=== PATIENT | male | born 1955 | race Caucasian/White ===

== ENCOUNTER 2021-07-06 20:15 | Inpatient (IN) ==
[2021-07-06] MEDS ORDERED: Naloxone 0.4 MG/ML INJ IVP PRN (22:26)
[2021-07-06] MEDS ORDERED: Ondansetron ODT 4 MG TAB.RAPDIS SL PRN (22:26)
[2021-07-07] MEDS ORDERED: Perflutren Lipid Microsphere 1.3 ML in 0.9 % Sodium Chloride 8.7 ML IVP PRN (00:15)
[2021-07-07 02:32] LABS: Basophils % 0.7 %; Eosinophils # 0.1 K/mcL (0.0-0.6); Hematocrit 31.2 % (37.5-50.1); Immature Granulocytes % 0.7 % (0-4); Lymphocytes # 1.5 K/mcL (0.6-4.6); Lymphocytes % 28.3 %; Mean Corpuscular HGB Conc 32.1 g/dL (31.6-35.5); Mean Corpuscular Hemoglobin 28.5 pg (28.0-33.3); Mean Corpuscular Volume 88.9 fL (83.0-100.0); Mean Platelet Volume 10.4 fL (9.4-12.4); Monocytes # 0.6 K/mcL (0.0-1.3); Monocytes % 10.6 %; Neutrophils # 3.1 K/mcL (1.6-8.9); Platelet Count 119 K/mcL (140-400); Red Blood Count 3.51 M/mcL (4.19-5.50); Red Cell Distribution Width 13.2 % (11.5-14.5); Segmented Neutrophils % 57.7 %; White Blood Count 5.4 K/mcL (4.3-11.1)
[2021-07-07 02:42] LABS: INR 1.8
[2021-07-07 02:56] LABS: Albumin 3.8 g/dL (3.5-5.7); Albumin/Globulin Ratio 1.3 (1.1-2.2); Bilirubin,Total 1.3 mg/dL (0.3-1.0); Calcium 9.1 mg/dL (8.6-10.3); Magnesium 1.7 mg/dL (1.6-2.6); Phosphorous 3.7 mg/dL (2.7-4.5); Potassium 3.8 mEq/L (3.5-5.1); Total Protein 6.8 g/dL (6.4-8.9); Troponin I 0.18 ng/mL (< 0.04)
[2021-07-07] MEDS: Aspirin 81 MG TAB.CHEW PO SCH (07:39)
[2021-07-07] MEDS: Thiamine (B-1) 100 MG TABLET PO SCH (07:39)
[2021-07-07] MEDS ORDERED: 0.9 % Sodium Chloride 1,000 ML IVC SCH (08:15)
[2021-07-07] MEDS ORDERED: *HR* Rivaroxaban 10 MG TABLET PO SCH (09:00)
[2021-07-07] MEDS: Albumin 25% 25gram/100mL 25 GM/100 ML IV.SOLN IVPB SCH ×2 (10:10→17:35)
[2021-07-07 11:06] LABS: Troponin I 0.14 ng/mL (< 0.04)
[2021-07-07] MEDS: Furosemide 20 MG/2 ML VIAL IVP SCH ×3 (11:09→20:15)
[2021-07-07 11:12] LABS: Thyroid Stimulating Hormone 1.928 mcIU/mL (0.340-5.600)
[2021-07-07 18:10] LABS: Bilirubin,Urine Negative (Negative); Blood,Urine Negative (Negative); Clarity,Urine Clear (Clear); Color,Urine Colorless (Yellow); Glucose,Urine (UA) Normal (Normal); Ketones,Urine Negative (Negative); Leukocyte Esterase,Urine Negative (Negative); Nitrite,Urine Negative (Negative); PH,Urine 5.5 pH Units (5.0-8.0); Protein,Urine Negative (Neg-Trace); Urobilinogen,Urine Normal (Normal)
[2021-07-07] MEDS ORDERED: *HR* Heparin 5,000 UNIT/ML VIAL IVP PRN ×2 (18:43)
[2021-07-07 19:10] LABS: Hematocrit 31.2 % (37.5-50.1); Hemoglobin 9.9 g/dL (12.9-16.9); Mean Corpuscular HGB Conc 31.7 g/dL (31.6-35.5); Mean Corpuscular Hemoglobin 28.2 pg (28.0-33.3); Mean Corpuscular Volume 88.9 fL (83.0-100.0); Mean Platelet Volume 10.4 fL (9.4-12.4); Platelet Count 114 K/mcL (140-400); Red Blood Count 3.51 M/mcL (4.19-5.50); Red Cell Distribution Width 13.2 % (11.5-14.5); White Blood Count 4.6 K/mcL (4.3-11.1)
[2021-07-07 19:24] LABS: INR 2.8; Prothrombin Time 30.7 Seconds (9.4-12.1)
[2021-07-07 19:28] LABS: Heparin anti-factor XA UFH 1.41 IU/mL (0.30-0.70)
[2021-07-07 20:08] LABS: Activated Partial Thrombo Time 139.1 Seconds (26.0-36.0)
[2021-07-07] MEDS ORDERED: Heparin 25,000UNIT/250ML 1/2NS 25,000 UNIT/250 ML IV.SOLN IVC SCH (22:00)
[2021-07-07] MEDS: Heparin 25,000UNIT/250ML 1/2NS 25,000 UNIT/250 ML IV.SOLN IVC SCH (22:03)
[2021-07-08] MEDS: Albumin 25% 25gram/100mL 25 GM/100 ML IV.SOLN IVPB SCH ×3 (01:20→18:12)
[2021-07-08] MEDS: OLANZapine 5 MG TAB.RAPDIS PO PRN (01:22)
[2021-07-08] MEDS: *HR* Metoprolol 5 MG/5 ML VIAL IVP PRN ×2 (03:31→08:18)
[2021-07-08 05:13] LABS: Basophils % 0.5 %; Eosinophils # 0.1 K/mcL (0.0-0.6); Eosinophils % 1.5 %; Hematocrit 30.9 % (37.5-50.1); Immature Granulocytes % 0.5 % (0-4); Lymphocytes # 1.5 K/mcL (0.6-4.6); Lymphocytes % 24.7 %; Mean Corpuscular HGB Conc 32.4 g/dL (31.6-35.5); Mean Corpuscular Hemoglobin 28.6 pg (28.0-33.3); Mean Corpuscular Volume 88.3 fL (83.0-100.0); Mean Platelet Volume 10.7 fL (9.4-12.4); Monocytes # 0.5 K/mcL (0.0-1.3); Monocytes % 8.8 %; Neutrophils # 3.8 K/mcL (1.6-8.9); Platelet Count 111 K/mcL (140-400); Red Cell Distribution Width 13.2 % (11.5-14.5); White Blood Count 5.9 K/mcL (4.3-11.1)
[2021-07-08 05:24] LABS: Calcium 9.3 mg/dL (8.6-10.3); Chol/HDL Ratio 2.3 (0-4.9); Magnesium 1.6 mg/dL (1.6-2.6); Potassium 3.5 mEq/L (3.5-5.1)
[2021-07-08 05:53] LABS: Estimated Average Glucose 108 mg/dl; Hemoglobin A1C 5.4 %
[2021-07-08 08:05] LABS: ABG Base Excess 0 mEq/L (-2 to 3); ABG HCO3 24 mEq/L (21-27); ABG Oxygen Saturation 94 % (95-98); ABG PCO2 39 mmHg (35-45); ABG PO2 71 mmHg (85-104); ABG TCO2 26 mEq/L (20-26)
[2021-07-08] MEDS: Thiamine (B-1) 100 MG TABLET PO SCH ×3 (08:19→08:56)
[2021-07-08] MEDS: Aspirin 81 MG TAB.CHEW PO SCH ×3 (08:19→08:56)
[2021-07-08] MEDS: Furosemide 20 MG/2 ML VIAL IVP SCH ×2 (10:54→20:23)
[2021-07-08] MEDS: Heparin 25,000UNIT/250ML 1/2NS 25,000 UNIT/250 ML IV.SOLN IVC SCH (15:10)
[2021-07-08 18:14] LABS: Sodium, Urine 92.4 mEq/L
[2021-07-08 18:15] LABS: Uric Acid 8.2 mg/dL (2.3-7.6)
[2021-07-08] MEDS: Metoprolol XL (24 HR) Succ 50 MG TAB.ER.24H PO SCH (20:24)
[2021-07-09] MEDS ORDERED: *HR* LORazepam 2 MG/ML VIAL IVP ONE ×2 (01:19→05:07)
[2021-07-09] MEDS: Albumin 25% 25gram/100mL 25 GM/100 ML IV.SOLN IVPB SCH ×3 (02:29→16:47)
[2021-07-09] MEDS: Metoprolol XL (24 HR) Succ 50 MG TAB.ER.24H PO SCH ×2 (08:15→19:54)
[2021-07-09] MEDS: Thiamine (B-1) 100 MG TABLET PO SCH (08:15)
[2021-07-09] MEDS: Aspirin 81 MG TAB.CHEW PO SCH (08:15)
[2021-07-09 08:51] LABS: Basophils % 0.6 %; Eosinophils # 0.1 K/mcL (0.0-0.6); Eosinophils % 2.2 %; Hematocrit 33.8 % (37.5-50.1); Hemoglobin 10.8 g/dL (12.9-16.9); Immature Granulocytes % 0.5 % (0-4); Lymphocytes # 1.9 K/mcL (0.6-4.6); Mean Corpuscular Hemoglobin 28.5 pg (28.0-33.3); Mean Corpuscular Volume 89.2 fL (83.0-100.0); Mean Platelet Volume 10.7 fL (9.4-12.4); Monocytes # 0.6 K/mcL (0.0-1.3); Neutrophils # 3.6 K/mcL (1.6-8.9); Platelet Count 114 K/mcL (140-400); Red Blood Count 3.79 M/mcL (4.19-5.50); Red Cell Distribution Width 13.2 % (11.5-14.5); Segmented Neutrophils % 57.7 %; White Blood Count 6.3 K/mcL (4.3-11.1)
[2021-07-09 08:59] LABS: INR 1.6; Prothrombin Time 18.1 Seconds (9.4-12.1)
[2021-07-09 09:08] LABS: Calcium 9.5 mg/dL (8.6-10.3); Magnesium 1.9 mg/dL (1.6-2.6); Potassium 3.6 mEq/L (3.5-5.1)
[2021-07-09] MEDS: Furosemide 20 MG/2 ML VIAL IVP SCH (11:21)
[2021-07-09] MEDS: Heparin 25,000UNIT/250ML 1/2NS 25,000 UNIT/250 ML IV.SOLN IVC SCH (14:28)
[2021-07-09] MEDS: Melatonin 3 MG TABLET PO PRN (19:54)
[2021-07-09] MEDS: OLANZapine 5 MG TAB.RAPDIS PO PRN (19:54)
[2021-07-09] MEDS ORDERED: Haloperidol Lactate 5 MG/ML VIAL IVP ONE (22:21)
[2021-07-10] MEDS: Albumin 25% 25gram/100mL 25 GM/100 ML IV.SOLN IVPB SCH ×3 (01:18→17:02)
[2021-07-10] MEDS: Thiamine (B-1) 100 MG TABLET PO SCH (07:59)
[2021-07-10] MEDS: Metoprolol XL (24 HR) Succ 50 MG TAB.ER.24H PO SCH ×2 (07:59→20:09)
[2021-07-10] MEDS: Aspirin 81 MG TAB.CHEW PO SCH (07:59)
[2021-07-10 08:24] LABS: Basophils % 0.9 %; Eosinophils # 0.1 K/mcL (0.0-0.6); Eosinophils % 1.5 %; Hematocrit 31.8 % (37.5-50.1); Hemoglobin 10.2 g/dL (12.9-16.9); Immature Granulocytes % 0.6 % (0-4); Lymphocytes # 1.1 K/mcL (0.6-4.6); Lymphocytes % 24.4 %; Mean Corpuscular HGB Conc 32.1 g/dL (31.6-35.5); Mean Corpuscular Hemoglobin 28.7 pg (28.0-33.3); Mean Corpuscular Volume 89.3 fL (83.0-100.0); Mean Platelet Volume 10.4 fL (9.4-12.4); Monocytes # 0.4 K/mcL (0.0-1.3); Monocytes % 9.5 %; Neutrophils # 2.9 K/mcL (1.6-8.9); Platelet Count 111 K/mcL (140-400); Red Blood Count 3.56 M/mcL (4.19-5.50); Red Cell Distribution Width 13.3 % (11.5-14.5); Segmented Neutrophils % 63.1 %; White Blood Count 4.6 K/mcL (4.3-11.1)
[2021-07-10 08:30] LABS: INR 1.6; Prothrombin Time 17.3 Seconds (9.4-12.1)
[2021-07-10 08:43] LABS: Calcium 9.8 mg/dL (8.6-10.3); Magnesium 1.8 mg/dL (1.6-2.6); Phosphorous 3.7 mg/dL (2.7-4.5); Potassium 3.7 mEq/L (3.5-5.1)
[2021-07-10] MEDS ORDERED: Furosemide 20 MG/2 ML VIAL IVP SCH (09:00)
[2021-07-10] MEDS: Heparin 25,000UNIT/250ML 1/2NS 25,000 UNIT/250 ML IV.SOLN IVC SCH (09:24)
[2021-07-10] MEDS: Ondansetron 4 MG/2 ML VIAL IVP PRN (17:03)
[2021-07-10] MEDS: Melatonin 3 MG TABLET PO PRN (20:08)
[2021-07-11] MEDS: Albumin 25% 25gram/100mL 25 GM/100 ML IV.SOLN IVPB SCH ×3 (02:01→17:48)
[2021-07-11 04:29] LABS: Basophils % 0.6 %; Eosinophils % 2.4 %; Hematocrit 28.1 % (37.5-50.1); Hemoglobin 8.9 g/dL (12.9-16.9); Mean Corpuscular HGB Conc 31.7 g/dL (31.6-35.5); Mean Platelet Volume 10.8 fL (9.4-12.4)
[2021-07-11 04:31] LABS: Eosinophils # 0.1 K/mcL (0.0-0.6); Immature Granulocytes % 0.8 % (0-4); Immature Platelets 6.1 % (1.1-6.1); Lymphocytes # 1.4 K/mcL (0.6-4.6); Lymphocytes % 28.7 %; Mean Corpuscular Hemoglobin 28.2 pg (28.0-33.3); Mean Corpuscular Volume 88.9 fL (83.0-100.0); Monocytes # 0.6 K/mcL (0.0-1.3); Monocytes % 11.7 %; Red Blood Count 3.16 M/mcL (4.19-5.50); Red Cell Distribution Width 13.1 % (11.5-14.5); Segmented Neutrophils % 55.8 %; White Blood Count 4.9 K/mcL (4.3-11.1)
[2021-07-11 04:46] LABS: Calcium 9.3 mg/dL (8.6-10.3); Magnesium 1.8 mg/dL (1.6-2.6); Phosphorous 4.3 mg/dL (2.7-4.5); Potassium 3.8 mEq/L (3.5-5.1)
[2021-07-11 05:19] LABS: Neutrophils # 2.7 K/mcL (1.6-8.9); Platelet Count 95 K/mcL (140-400)
[2021-07-11 08:34] LABS: INR 1.5; Prothrombin Time 16.5 Seconds (9.4-12.1)
[2021-07-11] MEDS: Aspirin 81 MG TAB.CHEW PO SCH (09:06)
[2021-07-11] MEDS: Metoprolol XL (24 HR) Succ 50 MG TAB.ER.24H PO SCH ×2 (09:06→20:52)
[2021-07-11] MEDS: Thiamine (B-1) 100 MG TABLET PO SCH (09:06)
[2021-07-11] MEDS ORDERED: *HR* Etomidate 40 MG/20 ML VIAL IVP ONE (10:37)
[2021-07-11] MEDS ORDERED: Lidocaine -MPF 2% 2 ML VIAL ONE (10:41)
[2021-07-11] MEDS ORDERED: *HR* Rocuronium Bromide 50 MG/5 ML VIAL ONE (10:43)
[2021-07-11] MEDS ORDERED: *HR* Succinylcholine 200 MG/10 ML VIAL IVP ONE (10:43)
[2021-07-11] MEDS ORDERED: Lidocaine -MPF 4% 5 ML AMPUL ONE (10:43)
[2021-07-11] MEDS ORDERED: EPHEDrine 50 MG/ML VIAL ONE (10:53)
[2021-07-11] MEDS: Melatonin 3 MG TABLET PO PRN (20:52)
[2021-07-11] MEDS: QUEtiapine Fumarate 25 MG TABLET PO SCH (20:52)
[2021-07-12] MEDS: Albumin 25% 25gram/100mL 25 GM/100 ML IV.SOLN IVPB SCH ×4 (02:44→17:58)
[2021-07-12] MEDS ORDERED: Haloperidol Lactate 5 MG/ML VIAL IM ONE (08:37)
[2021-07-12] MEDS: Aspirin 81 MG TAB.CHEW PO SCH ×2 (09:00→16:29)
[2021-07-12] MEDS: Thiamine (B-1) 100 MG TABLET PO SCH ×2 (09:00→16:29)
[2021-07-12] MEDS: Metoprolol XL (24 HR) Succ 50 MG TAB.ER.24H PO SCH ×3 (09:00→21:00)
[2021-07-12 15:50] LABS: Basophils % 0.7 %; Eosinophils # 0.1 K/mcL (0.0-0.6); Eosinophils % 1.2 %; Hematocrit 34.7 % (37.5-50.1); Immature Granulocytes % 0.7 % (0-4); Lymphocytes # 1.3 K/mcL (0.6-4.6); Lymphocytes % 21.5 %; Mean Corpuscular HGB Conc 31.4 g/dL (31.6-35.5); Mean Corpuscular Hemoglobin 28.2 pg (28.0-33.3); Mean Corpuscular Volume 89.9 fL (83.0-100.0); Mean Platelet Volume 11.1 fL (9.4-12.4); Monocytes # 0.6 K/mcL (0.0-1.3); Neutrophils # 3.9 K/mcL (1.6-8.9); Platelet Count 113 K/mcL (140-400); Red Blood Count 3.86 M/mcL (4.19-5.50); Red Cell Distribution Width 13.2 % (11.5-14.5); Segmented Neutrophils % 65.9 %; White Blood Count 5.9 K/mcL (4.3-11.1)
[2021-07-12 16:02] LABS: Hemoglobin 10.9 g/dL (12.9-16.9)
[2021-07-12 16:05] LABS: Albumin 5.7 g/dL (3.5-5.7); Albumin/Globulin Ratio 2.1 (1.1-2.2); Bilirubin,Total 2.7 mg/dL (0.3-1.0); Calcium 10.5 mg/dL (8.6-10.3); Globulin 2.7 g/dL (2.4-3.5); Total Protein 8.4 g/dL (6.4-8.9)
[2021-07-12] MEDS: *HR* Rivaroxaban 10 MG TABLET PO SCH (16:29)
[2021-07-12] MEDS: Melatonin 3 MG TABLET PO PRN (21:00)
[2021-07-12] MEDS: QUEtiapine Fumarate 25 MG TABLET PO SCH (21:00)
[2021-07-13] MEDS: Albumin 25% 25gram/100mL 25 GM/100 ML IV.SOLN IVPB SCH ×3 (01:13→16:21)
[2021-07-13 02:53] LABS: Hemoglobin 9.5 g/dL (12.9-16.9); Immature Granulocytes % 0.5 % (0-4); Red Cell Distribution Width 13.2 % (11.5-14.5)
[2021-07-13 02:55] LABS: Basophils % 0.7 %; Eosinophils # 0.1 K/mcL (0.0-0.6); Eosinophils % 1.2 %; Immature Platelets 6.7 % (1.1-6.1); Lymphocytes # 1.2 K/mcL (0.6-4.6); Lymphocytes % 21.8 %; Mean Corpuscular HGB Conc 31.7 g/dL (31.6-35.5); Mean Corpuscular Hemoglobin 28.4 pg (28.0-33.3); Mean Corpuscular Volume 89.8 fL (83.0-100.0); Mean Platelet Volume 11.2 fL (9.4-12.4); Monocytes # 0.6 K/mcL (0.0-1.3); Monocytes % 10.1 %; Neutrophils # 3.7 K/mcL (1.6-8.9); Red Blood Count 3.34 M/mcL (4.19-5.50); Segmented Neutrophils % 65.7 %; White Blood Count 5.6 K/mcL (4.3-11.1)
[2021-07-13 02:57] LABS: Platelet Count 87 K/mcL (140-400)
[2021-07-13 03:13] LABS: Albumin 5.3 g/dL (3.5-5.7); Albumin/Globulin Ratio 2.3 (1.1-2.2); Globulin 2.3 g/dL (2.4-3.5); Potassium 3.6 mEq/L (3.5-5.1); Total Protein 7.6 g/dL (6.4-8.9)
[2021-07-13] MEDS: Thiamine (B-1) 100 MG TABLET PO SCH (08:46)
[2021-07-13] MEDS: Metoprolol XL (24 HR) Succ 50 MG TAB.ER.24H PO SCH ×2 (08:46→20:43)
[2021-07-13] MEDS: Aspirin 81 MG TAB.CHEW PO SCH (08:46)
[2021-07-13] MEDS ORDERED: Furosemide 20 MG/2 ML VIAL IVP ONE (14:51)
[2021-07-13] MEDS ORDERED: Haloperidol Lactate 5 MG/ML VIAL IM ONE (16:15)
[2021-07-13] MEDS: *HR* Rivaroxaban 10 MG TABLET PO SCH (16:21)
[2021-07-13] MEDS: QUEtiapine Fumarate 25 MG TABLET PO SCH (20:43)
[2021-07-13] MEDS: Melatonin 3 MG TABLET PO PRN (20:43)
[2021-07-14] MEDS: Albumin 25% 25gram/100mL 25 GM/100 ML IV.SOLN IVPB SCH ×3 (00:57→17:43)
[2021-07-14] MEDS: Aspirin 81 MG TAB.CHEW PO SCH (08:25)
[2021-07-14] MEDS: Thiamine (B-1) 100 MG TABLET PO SCH (08:25)
[2021-07-14] MEDS: Metoprolol XL (24 HR) Succ 50 MG TAB.ER.24H PO SCH ×2 (08:25→21:31)
[2021-07-14 09:28] LABS: Basophils % 0.5 %; Mean Platelet Volume 11.5 fL (9.4-12.4); Red Cell Distribution Width 13.5 % (11.5-14.5)
[2021-07-14 09:30] LABS: Eosinophils # 0.1 K/mcL (0.0-0.6); Hematocrit 28.8 % (37.5-50.1); Immature Granulocytes % 0.5 % (0-4); Immature Platelets 6.5 % (1.1-6.1); Lymphocytes % 16.4 %; Mean Corpuscular HGB Conc 31.3 g/dL (31.6-35.5); Mean Corpuscular Hemoglobin 27.9 pg (28.0-33.3); Mean Corpuscular Volume 89.2 fL (83.0-100.0); Monocytes # 0.7 K/mcL (0.0-1.3); Monocytes % 11.2 %; Neutrophils # 4.3 K/mcL (1.6-8.9); Platelet Count 99 K/mcL (140-400); Red Blood Count 3.23 M/mcL (4.19-5.50); Segmented Neutrophils % 70.4 %; White Blood Count 6.1 K/mcL (4.3-11.1)
[2021-07-14 09:52] LABS: Albumin 5.6 g/dL (3.5-5.7); Albumin/Globulin Ratio 2.9 (1.1-2.2); Bilirubin,Total 2.3 mg/dL (0.3-1.0); Calcium 10.2 mg/dL (8.6-10.3); Globulin 1.9 g/dL (2.4-3.5); Potassium 3.5 mEq/L (3.5-5.1); Total Protein 7.5 g/dL (6.4-8.9)
[2021-07-14] MEDS ORDERED: Furosemide 20 MG/2 ML VIAL IVP ONE (11:34)
[2021-07-14] MEDS: *HR* Rivaroxaban 10 MG TABLET PO SCH (17:42)
[2021-07-14] MEDS: QUEtiapine Fumarate 25 MG TABLET PO SCH (21:30)
[2021-07-14] MEDS ORDERED: *HR* LORazepam 2 MG/ML VIAL IVP ONE (23:11)
[2021-07-15] MEDS: Albumin 25% 25gram/100mL 25 GM/100 ML IV.SOLN IVPB SCH ×3 (02:01→17:21)
[2021-07-15 05:57] LABS: Immature Granulocytes % 0.7 % (0-4); Red Cell Distribution Width 13.6 % (11.5-14.5)
[2021-07-15 05:58] LABS: Basophils % 0.3 %; Eosinophils # 0.1 K/mcL (0.0-0.6); Eosinophils % 1.9 %; Hematocrit 27.5 % (37.5-50.1); Hemoglobin 8.7 g/dL (12.9-16.9); Lymphocytes # 1.2 K/mcL (0.6-4.6); Lymphocytes % 19.8 %; Mean Corpuscular HGB Conc 31.6 g/dL (31.6-35.5); Mean Corpuscular Hemoglobin 28.2 pg (28.0-33.3); Mean Platelet Volume 11.5 fL (9.4-12.4); Monocytes # 0.6 K/mcL (0.0-1.3); Monocytes % 9.9 %; Red Blood Count 3.09 M/mcL (4.19-5.50); Segmented Neutrophils % 67.4 %; White Blood Count 5.9 K/mcL (4.3-11.1)
[2021-07-15 06:03] LABS: Platelet Count 95 K/mcL (140-400)
[2021-07-15 06:22] LABS: Albumin 5.6 g/dL (3.5-5.7); Albumin/Globulin Ratio 3.3 (1.1-2.2); Bilirubin,Total 2.5 mg/dL (0.3-1.0); Calcium 9.9 mg/dL (8.6-10.3); Globulin 1.7 g/dL (2.4-3.5); Potassium 3.5 mEq/L (3.5-5.1); Total Protein 7.3 g/dL (6.4-8.9)
[2021-07-15] MEDS: Thiamine (B-1) 100 MG TABLET PO SCH (08:13)
[2021-07-15] MEDS: Aspirin 81 MG TAB.CHEW PO SCH (08:13)
[2021-07-15] MEDS: Metoprolol XL (24 HR) Succ 50 MG TAB.ER.24H PO SCH ×2 (08:13→21:05)
[2021-07-15] MEDS ORDERED: Bumetanide 1 MG TABLET PO ONE (11:00)
[2021-07-15] MEDS: Melatonin 3 MG TABLET PO PRN (21:04)
[2021-07-15] MEDS: QUEtiapine Fumarate 25 MG TABLET PO SCH (21:05)
[2021-07-15] MEDS: Apixaban 5 MG TABLET PO SCH (21:05)
[2021-07-16] MEDS: Albumin 25% 25gram/100mL 25 GM/100 ML IV.SOLN IVPB SCH ×3 (01:26→17:00)
[2021-07-16 05:07] LABS: Eosinophils % 1.3 %
[2021-07-16 05:09] LABS: Basophils % 0.7 %; Eosinophils # 0.1 K/mcL (0.0-0.6); Hematocrit 25.8 % (37.5-50.1); Hemoglobin 8.3 g/dL (12.9-16.9); Immature Granulocytes % 0.7 % (0-4); Immature Platelets 6.7 % (1.1-6.1); Lymphocytes # 1.1 K/mcL (0.6-4.6); Lymphocytes % 20.4 %; Mean Corpuscular HGB Conc 32.2 g/dL (31.6-35.5); Mean Corpuscular Hemoglobin 28.5 pg (28.0-33.3); Mean Corpuscular Volume 88.7 fL (83.0-100.0); Mean Platelet Volume 11.5 fL (9.4-12.4); Monocytes # 0.6 K/mcL (0.0-1.3); Monocytes % 11.2 %; Neutrophils # 3.7 K/mcL (1.6-8.9); Red Blood Count 2.91 M/mcL (4.19-5.50); Red Cell Distribution Width 13.6 % (11.5-14.5); Segmented Neutrophils % 65.7 %; White Blood Count 5.6 K/mcL (4.3-11.1)
[2021-07-16 05:13] LABS: Platelet Count 96 K/mcL (140-400)
[2021-07-16 05:26] LABS: Albumin 5.4 g/dL (3.5-5.7); Albumin/Globulin Ratio 2.7 (1.1-2.2); Bilirubin,Total 2.7 mg/dL (0.3-1.0); Calcium 10.2 mg/dL (8.6-10.3); Potassium 3.5 mEq/L (3.5-5.1); Total Protein 7.4 g/dL (6.4-8.9)
[2021-07-16] MEDS: Apixaban 5 MG TABLET PO SCH ×2 (08:53→21:19)
[2021-07-16] MEDS: Aspirin 81 MG TAB.CHEW PO SCH (08:53)
[2021-07-16] MEDS: Thiamine (B-1) 100 MG TABLET PO SCH (08:53)
[2021-07-16] MEDS: Metoprolol XL (24 HR) Succ 50 MG TAB.ER.24H PO SCH ×2 (08:53→21:19)
[2021-07-16] MEDS: QUEtiapine Fumarate 25 MG TABLET PO SCH (21:19)
[2021-07-16] MEDS: Melatonin 3 MG TABLET PO PRN (21:19)
[2021-07-17] MEDS: Albumin 25% 25gram/100mL 25 GM/100 ML IV.SOLN IVPB SCH ×3 (03:09→18:15)
[2021-07-17] MEDS ORDERED: QUEtiapine Fumarate 25 MG TABLET PO ONE (04:00)
[2021-07-17 05:34] LABS: Basophils % 0.5 %; Eosinophils # 0.1 K/mcL (0.0-0.6); Eosinophils % 1.7 %; Hemoglobin 8.8 g/dL (12.9-16.9); Immature Granulocytes % 0.8 % (0-4); Lymphocytes # 1.2 K/mcL (0.6-4.6); Mean Corpuscular HGB Conc 32.6 g/dL (31.6-35.5); Mean Corpuscular Hemoglobin 28.3 pg (28.0-33.3); Mean Corpuscular Volume 86.8 fL (83.0-100.0); Mean Platelet Volume 11.6 fL (9.4-12.4); Monocytes # 0.5 K/mcL (0.0-1.3); Monocytes % 8.8 %; Neutrophils # 4.2 K/mcL (1.6-8.9); Platelet Count 115 K/mcL (140-400); Red Blood Count 3.11 M/mcL (4.19-5.50); Red Cell Distribution Width 13.7 % (11.5-14.5); Segmented Neutrophils % 69.2 %; White Blood Count 6.1 K/mcL (4.3-11.1)
[2021-07-17 05:53] LABS: Albumin 5.9 g/dL (3.5-5.7); Albumin/Globulin Ratio 3.1 (1.1-2.2); Bilirubin,Total 2.7 mg/dL (0.3-1.0); Calcium 10.3 mg/dL (8.6-10.3); Globulin 1.9 g/dL (2.4-3.5); Potassium 3.6 mEq/L (3.5-5.1); Total Protein 7.8 g/dL (6.4-8.9)
[2021-07-17] MEDS: Metoprolol XL (24 HR) Succ 50 MG TAB.ER.24H PO SCH ×2 (08:26→21:30)
[2021-07-17] MEDS: Thiamine (B-1) 100 MG TABLET PO SCH (08:27)
[2021-07-17] MEDS: Apixaban 5 MG TABLET PO SCH ×2 (08:27→21:30)
[2021-07-17] MEDS: Aspirin 81 MG TAB.CHEW PO SCH (08:27)
[2021-07-17] MEDS: Bumetanide 1 MG TABLET PO SCH ×2 (13:17→18:14)
[2021-07-17] MEDS: QUEtiapine Fumarate 25 MG TABLET PO SCH (21:30)
[2021-07-17] MEDS: Melatonin 3 MG TABLET PO PRN (21:30)
[2021-07-18] MEDS: Albumin 25% 25gram/100mL 25 GM/100 ML IV.SOLN IVPB SCH ×3 (01:46→18:03)
[2021-07-18] MEDS ORDERED: QUEtiapine Fumarate 25 MG TABLET PO ONE (02:16)
[2021-07-18 06:17] LABS: Basophils % 0.6 %; Eosinophils # 0.1 K/mcL (0.0-0.6); Eosinophils % 2.1 %; Hematocrit 25.6 % (37.5-50.1); Hemoglobin 8.2 g/dL (12.9-16.9); Immature Granulocytes % 0.6 % (0-4); Lymphocytes # 1.1 K/mcL (0.6-4.6); Lymphocytes % 21.8 %; Mean Corpuscular Volume 87.4 fL (83.0-100.0); Mean Platelet Volume 11.3 fL (9.4-12.4); Monocytes # 0.6 K/mcL (0.0-1.3); Monocytes % 11.6 %; Neutrophils # 3.1 K/mcL (1.6-8.9); Platelet Count 112 K/mcL (140-400); Red Blood Count 2.93 M/mcL (4.19-5.50); Red Cell Distribution Width 13.4 % (11.5-14.5); Segmented Neutrophils % 63.3 %; White Blood Count 4.8 K/mcL (4.3-11.1)
[2021-07-18 06:36] LABS: Albumin 5.7 g/dL (3.5-5.7); Albumin/Globulin Ratio 3.6 (1.1-2.2); Bilirubin,Total 2.9 mg/dL (0.3-1.0); Calcium 10.2 mg/dL (8.6-10.3); Globulin 1.6 g/dL (2.4-3.5); Potassium 3.2 mEq/L (3.5-5.1); Total Protein 7.3 g/dL (6.4-8.9)
[2021-07-18] MEDS: Bumetanide 1 MG TABLET PO SCH (08:22)
[2021-07-18] MEDS: Thiamine (B-1) 100 MG TABLET PO SCH (08:22)
[2021-07-18] MEDS: Apixaban 5 MG TABLET PO SCH ×2 (08:22→21:17)
[2021-07-18] MEDS: Metoprolol XL (24 HR) Succ 50 MG TAB.ER.24H PO SCH ×2 (08:22→21:16)
[2021-07-18] MEDS: Aspirin 81 MG TAB.CHEW PO SCH (08:22)
[2021-07-18] MEDS: QUEtiapine Fumarate 25 MG TABLET PO SCH (21:17)
[2021-07-18] MEDS: Melatonin 3 MG TABLET PO PRN (21:17)
[2021-07-19] MEDS ORDERED: QUEtiapine Fumarate 25 MG TABLET PO ONE (02:13)
[2021-07-19] MEDS: Albumin 25% 25gram/100mL 25 GM/100 ML IV.SOLN IVPB SCH ×3 (02:27→17:51)
[2021-07-19 08:38] LABS: Hematocrit 27.5 % (37.5-50.1); Hemoglobin 8.9 g/dL (12.9-16.9)
[2021-07-19] MEDS: Apixaban 5 MG TABLET PO SCH ×2 (08:41→20:14)
[2021-07-19] MEDS: Thiamine (B-1) 100 MG TABLET PO SCH (08:41)
[2021-07-19] MEDS: Metoprolol XL (24 HR) Succ 50 MG TAB.ER.24H PO SCH ×2 (08:41→20:15)
[2021-07-19] MEDS: Aspirin 81 MG TAB.CHEW PO SCH (08:41)
[2021-07-19 08:55] LABS: Calcium 10.5 mg/dL (8.6-10.3); Potassium 3.4 mEq/L (3.5-5.1)
[2021-07-19] MEDS: Melatonin 3 MG TABLET PO PRN (20:16)
[2021-07-19] MEDS: QUEtiapine Fumarate 25 MG TABLET PO SCH (20:16)
[2021-07-19] MEDS ORDERED: Haloperidol Lactate 5 MG/ML VIAL IVP ONE (21:36)
[2021-07-20] MEDS: Albumin 25% 25gram/100mL 25 GM/100 ML IV.SOLN IVPB SCH ×3 (01:47→17:35)
[2021-07-20] MEDS: Ondansetron 4 MG/2 ML VIAL IVP PRN (01:52)
[2021-07-20] MEDS: Aspirin 81 MG TAB.CHEW PO SCH (08:07)
[2021-07-20] MEDS: Metoprolol XL (24 HR) Succ 50 MG TAB.ER.24H PO SCH ×2 (08:07→21:09)
[2021-07-20] MEDS: Apixaban 5 MG TABLET PO SCH ×2 (08:07→21:08)
[2021-07-20] MEDS: Thiamine (B-1) 100 MG TABLET PO SCH (08:07)
[2021-07-20 08:16] LABS: Calcium 10.4 mg/dL (8.6-10.3); Potassium 3.6 mEq/L (3.5-5.1)
[2021-07-20] MEDS: QUEtiapine Fumarate 25 MG TABLET PO SCH (21:08)
[2021-07-20] MEDS: Melatonin 3 MG TABLET PO PRN (21:08)
[2021-07-21] MEDS: Albumin 25% 25gram/100mL 25 GM/100 ML IV.SOLN IVPB SCH ×3 (01:52→18:11)
[2021-07-21 06:08] LABS: Calcium 10.3 mg/dL (8.6-10.3); Potassium 3.4 mEq/L (3.5-5.1)
[2021-07-21] MEDS ORDERED: 0.9 % Sodium Chloride 250 ML IVC PRN (08:24)
[2021-07-21] MEDS ORDERED: 0.9 % Sodium Chloride 2,000 ML PRIME SCH (08:30)
[2021-07-21] MEDS ORDERED: Heparin 1,000 UNITS/500 mL 500 ML ONE (10:09)
[2021-07-21] MEDS ORDERED: *HR* Heparin 5,000 UNIT/ML VIAL ONE (10:53)
[2021-07-21 11:01] LABS: Hepatitis B Surface Antibody > 850.00 mIU/mL
[2021-07-21 11:12] LABS: Hepatitis B Surface Antigen Nonreactive (Nonreactive)
[2021-07-21] MEDS: Thiamine (B-1) 100 MG TABLET PO SCH (11:29)
[2021-07-21] MEDS: Aspirin 81 MG TAB.CHEW PO SCH (11:29)
[2021-07-21] MEDS: Metoprolol XL (24 HR) Succ 50 MG TAB.ER.24H PO SCH ×2 (11:29→20:57)
[2021-07-21] MEDS: Apixaban 5 MG TABLET PO SCH ×2 (11:30→20:56)
[2021-07-21] MEDS ORDERED: Haloperidol Lactate 5 MG/ML VIAL IM ONE (13:55)
[2021-07-21] MEDS ORDERED: Haloperidol Lactate 5 MG/ML VIAL IVP ONE (17:56)
[2021-07-21] MEDS: QUEtiapine Fumarate 25 MG TABLET PO SCH (20:56)
[2021-07-22] MEDS: Albumin 25% 25gram/100mL 25 GM/100 ML IV.SOLN IVPB SCH ×2 (01:11→11:33)
[2021-07-22 09:30] LABS: Basophils % 0.6 %; Eosinophils % 1.1 %; Hemoglobin 8.5 g/dL (12.9-16.9); Immature Granulocytes % 1.3 % (0-4); Nucleated Red Blood Cells 0.5 /100 WBC (0)
[2021-07-22 09:32] LABS: Eosinophils # 0.1 K/mcL (0.0-0.6); Hematocrit 26.4 % (37.5-50.1); Immature Platelets 9.5 % (1.1-6.1); Lymphocytes # 0.8 K/mcL (0.6-4.6); Lymphocytes % 13.3 %; Mean Corpuscular HGB Conc 32.2 g/dL (31.6-35.5); Mean Corpuscular Hemoglobin 28.9 pg (28.0-33.3); Mean Corpuscular Volume 89.8 fL (83.0-100.0); Mean Platelet Volume 11.7 fL (9.4-12.4); Monocytes # 0.7 K/mcL (0.0-1.3); Monocytes % 11.1 %; Neutrophils # 4.6 K/mcL (1.6-8.9); Red Blood Count 2.94 M/mcL (4.19-5.50); Red Cell Distribution Width 14.8 % (11.5-14.5); Segmented Neutrophils % 72.6 %; White Blood Count 6.3 K/mcL (4.3-11.1)
[2021-07-22] MEDS: Aspirin 81 MG TAB.CHEW PO SCH (09:36)
[2021-07-22] MEDS: Metoprolol XL (24 HR) Succ 50 MG TAB.ER.24H PO SCH ×2 (09:36→21:20)
[2021-07-22] MEDS: Thiamine (B-1) 100 MG TABLET PO SCH (09:36)
[2021-07-22 09:48] LABS: Albumin 5.9 g/dL (3.5-5.7); Calcium 10.2 mg/dL (8.6-10.3); Magnesium 2.2 mg/dL (1.6-2.6); Phosphorous 4.5 mg/dL (2.7-4.5); Potassium 3.1 mEq/L (3.5-5.1)
[2021-07-22 10:10] LABS: Platelet Count 51 K/mcL (140-400)
[2021-07-22] MEDS: Apixaban 5 MG TABLET PO SCH ×2 (11:29→21:20)
[2021-07-22] MEDS: Melatonin 3 MG TABLET PO PRN (21:20)
[2021-07-22] MEDS: QUEtiapine Fumarate 25 MG TABLET PO SCH (21:21)
[2021-07-23 03:55] LABS: Basophils % 0.6 %; Monocytes % 10.6 %; Red Cell Distribution Width 14.9 % (11.5-14.5)
[2021-07-23 03:56] LABS: Eosinophils # 0.1 K/mcL (0.0-0.6); Eosinophils % 1.5 %; Hematocrit 25.7 % (37.5-50.1); Hemoglobin 8.2 g/dL (12.9-16.9); Immature Granulocytes % 1.2 % (0-4); Immature Platelets 9.6 % (1.1-6.1); Lymphocytes % 15.5 %; Mean Corpuscular HGB Conc 31.9 g/dL (31.6-35.5); Mean Corpuscular Hemoglobin 28.5 pg (28.0-33.3); Mean Corpuscular Volume 89.2 fL (83.0-100.0); Mean Platelet Volume 11.7 fL (9.4-12.4); Monocytes # 0.7 K/mcL (0.0-1.3); Neutrophils # 4.6 K/mcL (1.6-8.9); Nucleated Red Blood Cells 0.3 /100 WBC (0); Red Blood Count 2.88 M/mcL (4.19-5.50); Segmented Neutrophils % 70.6 %; White Blood Count 6.5 K/mcL (4.3-11.1)
[2021-07-23 04:01] LABS: Platelet Count 50 K/mcL (140-400)
[2021-07-23 04:48] LABS: Calcium 10.1 mg/dL (8.6-10.3); Potassium 3.2 mEq/L (3.5-5.1)
[2021-07-23] MEDS ORDERED: 0.9 % Sodium Chloride 250 ML IVC PRN (07:14)
[2021-07-23] MEDS: Aspirin 81 MG TAB.CHEW PO SCH (08:34)
[2021-07-23] MEDS: Thiamine (B-1) 100 MG TABLET PO SCH (08:35)
[2021-07-23] MEDS: Metoprolol XL (24 HR) Succ 50 MG TAB.ER.24H PO SCH ×2 (08:35→19:41)
[2021-07-23] MEDS: Apixaban 5 MG TABLET PO SCH ×2 (08:35→19:42)
[2021-07-23 08:55] LABS: Hematocrit 25.9 % (37.5-50.1); Hemoglobin 8.2 g/dL (12.9-16.9)
[2021-07-23] MEDS: *HR* LORazepam 2 MG/ML VIAL IVP PRN (15:55)
[2021-07-23] MEDS: Stomatitis Mixture 5 ML UDC PO SCH ×2 (16:36→19:41)
[2021-07-23] MEDS: Melatonin 3 MG TABLET PO PRN (19:42)
[2021-07-23] MEDS: QUEtiapine Fumarate 25 MG TABLET PO SCH (19:42)
[2021-07-24 04:41] LABS: Immature Granulocytes % 1.5 % (0-4); Nucleated Red Blood Cells 0.3 /100 WBC (0); Red Cell Distribution Width 15.6 % (11.5-14.5)
[2021-07-24 04:43] LABS: Basophils % 0.6 %; Eosinophils # 0.1 K/mcL (0.0-0.6); Eosinophils % 2.3 %; Hematocrit 25.6 % (37.5-50.1); Lymphocytes # 1.3 K/mcL (0.6-4.6); Lymphocytes % 20.6 %; Mean Corpuscular HGB Conc 31.3 g/dL (31.6-35.5); Mean Corpuscular Hemoglobin 28.2 pg (28.0-33.3); Mean Corpuscular Volume 90.1 fL (83.0-100.0); Mean Platelet Volume 12.1 fL (9.4-12.4); Monocytes # 0.5 K/mcL (0.0-1.3); Monocytes % 8.4 %; Neutrophils # 4.1 K/mcL (1.6-8.9); Red Blood Count 2.84 M/mcL (4.19-5.50); Segmented Neutrophils % 66.6 %; White Blood Count 6.2 K/mcL (4.3-11.1)
[2021-07-24 04:47] LABS: Platelet Count 34 K/mcL (140-400)
[2021-07-24 05:03] LABS: Phosphorous 3.8 mg/dL (2.7-4.5)
[2021-07-24 05:04] LABS: Albumin 5.6 g/dL (3.5-5.7); Albumin/Globulin Ratio 3.1 (1.1-2.2); Bilirubin,Direct 1.2 mg/dL (0.0-0.2); Bilirubin,Indirect 3.4 mg/dL (0.0-1.0); Bilirubin,Total 4.6 mg/dL (0.3-1.0); Calcium 10.2 mg/dL (8.6-10.3); Globulin 1.8 g/dL (2.4-3.5); Magnesium 2.2 mg/dL (1.6-2.6); Potassium 3.5 mEq/L (3.5-5.1); Total Protein 7.4 g/dL (6.4-8.9)
[2021-07-24 05:29] LABS: Folate > 22.3 ng/mL (3.0-16.0); Vitamin B12 > 1500 pg/mL (250-1100)
[2021-07-24] MEDS: Aspirin 81 MG TAB.CHEW PO SCH (10:17)
[2021-07-24] MEDS: Stomatitis Mixture 5 ML UDC PO SCH ×4 (10:18→21:23)
[2021-07-24] MEDS: Metoprolol XL (24 HR) Succ 50 MG TAB.ER.24H PO SCH ×2 (10:18→20:48)
[2021-07-24] MEDS: Thiamine (B-1) 100 MG TABLET PO SCH (10:18)
[2021-07-24] MEDS: Apixaban 5 MG TABLET PO SCH (10:18)
[2021-07-24] MEDS: Iron Sucrose Complex 200 MG in 0.9 % Sodium Chloride 100 ML IVPB SCH (11:34)
[2021-07-24] MEDS ORDERED: Bumetanide 1 MG TABLET PO SCH (12:00)
[2021-07-24] MEDS: Bumetanide 1 MG TABLET PO SCH (14:26)
[2021-07-24] MEDS: QUEtiapine Fumarate 25 MG TABLET PO SCH (20:48)
[2021-07-25 07:01] LABS: Bacteria,Urine Few per hpf (None-Few); Bilirubin,Urine Negative (Negative); Blood,Urine Small (Negative); Clarity,Urine Turbid (Clear); Color,Urine Yellow (Yellow); Glucose,Urine (UA) Normal (Normal); Hyaline Casts,Urine Few per lpf (None Seen); Ketones,Urine Negative (Negative); Leukocyte Esterase,Urine Negative (Negative); Mucus,Urine Few per lpf (None-Few); Nitrite,Urine Negative (Negative); Protein,Urine 100 mg/dL (Neg-Trace); RBC,Urine 0-3 per hpf (0-3); Specific Gravity,Urine 1.016 (1.010-1.025); Squamous Epithelial Cell,Urine Few per hpf (None-Few); Urobilinogen,Urine Normal (Normal)
[2021-07-25] MEDS ORDERED: 0.9 % Sodium Chloride 250 ML IVC PRN (07:08)
[2021-07-25] MEDS: Thiamine (B-1) 100 MG TABLET PO SCH (07:31)
[2021-07-25] MEDS: Metoprolol XL (24 HR) Succ 50 MG TAB.ER.24H PO SCH ×2 (07:31→20:44)
[2021-07-25] MEDS: Stomatitis Mixture 5 ML UDC PO SCH ×4 (07:31→20:44)
[2021-07-25] MEDS: Aspirin 81 MG TAB.CHEW PO SCH (07:31)
[2021-07-25 08:28] LABS: Eosinophils % 2.1 %
[2021-07-25 08:30] LABS: Basophils % 0.6 %; Eosinophils # 0.2 K/mcL (0.0-0.6); Hematocrit 25.1 % (37.5-50.1); Immature Granulocytes % 1.5 % (0-4); Immature Platelets 8.6 % (1.1-6.1); Lymphocytes # 0.8 K/mcL (0.6-4.6); Lymphocytes % 10.7 %; Mean Corpuscular HGB Conc 31.9 g/dL (31.6-35.5); Mean Corpuscular Volume 90.9 fL (83.0-100.0); Monocytes # 0.7 K/mcL (0.0-1.3); Monocytes % 9.6 %; Neutrophils # 5.4 K/mcL (1.6-8.9); Nucleated Red Blood Cells 0.3 /100 WBC (0); Red Blood Count 2.76 M/mcL (4.19-5.50); Red Cell Distribution Width 16.3 % (11.5-14.5); Segmented Neutrophils % 75.5 %; White Blood Count 7.2 K/mcL (4.3-11.1)
[2021-07-25 08:35] LABS: INR 3.5
[2021-07-25 08:39] LABS: Platelet Count 43 K/mcL (140-400)
[2021-07-25 08:46] LABS: Calcium 10.4 mg/dL (8.6-10.3); Magnesium 2.3 mg/dL (1.6-2.6); Phosphorous 4.8 mg/dL (2.7-4.5); Potassium 3.3 mEq/L (3.5-5.1)
[2021-07-25] MEDS: Iron Sucrose Complex 200 MG in 0.9 % Sodium Chloride 100 ML IVPB SCH (10:08)
[2021-07-25 14:59] LABS: Hepatitis C Virus Antibody Nonreactive (Nonreactive)
[2021-07-25 15:00] LABS: Hepatitis B Core IgM Nonreactive (Nonreactive)
[2021-07-25 15:02] LABS: Hepatitis A Antibody IgM Nonreactive (Nonreactive)
[2021-07-25] MEDS: QUEtiapine Fumarate 25 MG TABLET PO SCH (20:44)
[2021-07-26 02:04] LABS: INR 2.7; Prothrombin Time 30.1 Seconds (9.4-12.1)
[2021-07-26] MEDS: *HR* LORazepam 2 MG/ML VIAL IVP PRN (03:01)
[2021-07-26] MEDS: Metoprolol XL (24 HR) Succ 50 MG TAB.ER.24H PO SCH (08:56)
[2021-07-26] MEDS: Aspirin 81 MG TAB.CHEW PO SCH (08:56)
[2021-07-26] MEDS: Thiamine (B-1) 100 MG TABLET PO SCH (08:56)
[2021-07-26] MEDS: Bumetanide 1 MG TABLET PO SCH (09:01)
[2021-07-26] MEDS: Stomatitis Mixture 5 ML UDC PO SCH (09:08)
[2021-07-26 10:08] VITALS: BP 139/90; PULSE 90; TEMP 97.1; O2SAT 94
== END 2021-07-26 14:04 | disposition hospice, home (50) | DRG 280 ==
LOC: 3BNU → OBSVTOIN 22:17 → SUATTDRO 22:17 → 3BNU 07-11 19:26 → 2ANU 07-21 17:43
PROVIDERS: ADMIT Family Medicine; ATTEND Pharmacist
PROC: ENDOEUS (2021-07-11 09:30)